=== PATIENT | male | born 1945 | race Caucasian/White ===

== ENCOUNTER 2017-06-07 12:29 | Inpatient (IN) | payer OTHER ==
[~2017-06-07] VITALS: Ht 170.2 cm; Wt 80.0 kg
[2017-06-07 13:24] LABS: CALCIUM 8.9 mg/dL (8.5-10.1); CARBON DIOXIDE 29.3 mmol/L (21-32); CHLORIDE SERUM 107 mmol/L (98-107); CREATININE SERUM 1.1 mg/dL (0.7-1.3); GFR1 > 60 mL/min; GLUCOSE SERUM 113 mg/dL (74-106); POTASSIUM SERUM 3.8 mmol/L (3.5-5.1); SODIUM SERUM 145 mmol/L (136-145)
[2017-06-07 13:28] LABS: ALBUMIN 3.7 g/dL (3.4-5.0); ALKALINE PHOSPHATASE 94 U/L (46-116); ALT/SGPT 29 U/L (16-63); AST/SGOT 29 U/L (15-37)
[2017-06-07 13:51] LABS: BASOPHIL % 0.4 % (0-2); PLATELET COUNT 125 x10^3mcL (130-400); RED CELL DISTRIBUTION WIDTH 13.9 % (11.5-14.5)
[2017-06-07] MEDS ORDERED: DILTIAZEM HCL120 M2 PO (14:51)
[2017-06-07] MEDS ORDERED: CARVEDILOL6.25 M1 PO (14:52)
[2017-06-07] MEDS ORDERED: KLOR-CON M2020 MEQ PO (14:53)
[2017-06-07] MEDS ORDERED: MAGNESIUM OXID400 MG PO (14:53)
[2017-06-07] MEDS ORDERED: XARELTO10 M1 PO (14:56)
[2017-06-07] MEDS ORDERED: FLONS (14:56)
[2017-06-07] MEDS ORDERED: LIPI20 PO (14:57)
[2017-06-07] MEDS ORDERED: GEMFIBROZIL600 MG PO (14:57)
[2017-06-07] MEDS ORDERED: PRAZOSIN HYDROCH1 MG PO (14:58)
[2017-06-07 15:35] LABS: MAGNESIUM 2.2 mg/dL (1.8-2.4); PHOSPHOROUS 3.3 mg/dL (2.5-4.9)
[2017-06-07 15:48] VITALS: BP 179/126
[2017-06-07 15:51] LABS: T3 TOTAL 1.04 ng/mL
[2017-06-07 15:53] VITALS: Ht 170.2 cm; Wt 80.0 kg
[2017-06-07 16:00] LABS: FREE T4 0.75 ng/dL (0.76-1.46); FREE THYROXINE INDEX 1.7 ug/dL (1.4-4.5); T4(THYROXINE) 4.8 ug/dL (4.7-13.3)
[2017-06-07 16:51] VITALS: BP 186/89
[2017-06-07 17:43] LABS: UA SPECIFIC GRAVITY 1.015 (1.005-1.035); microscopic required? YES; urine erythrocyte NEGATIVE (NEGATIVE)
[2017-06-07 17:52] VITALS: BP 145/83
[2017-06-07 21:20] VITALS: BP 146/92
[2017-06-08 06:13] VITALS: BP 155/75
[2017-06-08 10:17] VITALS: BP 129/87
[2017-06-08 13:46] VITALS: BP 162/82
[2017-06-08 22:46] VITALS: BP 176/91
[2017-06-08 23:05] VITALS: BP 125/82
[2017-06-09 06:14] VITALS: BP 144/78
[2017-06-09 07:05] VITALS: BP 145/78
[2017-06-09] MEDS ORDERED: XARELTO20 M1 PO (07:29)
[2017-06-09] MEDS ORDERED: CARCD120 PO (07:33)
[2017-06-09] MEDS ORDERED: COREG12.5 MG PO (10:19)
[2017-06-09 10:21] VITALS: BP 174/101
[2017-06-09 10:54] LABS: BASOPHIL % 0.4 % (0-2); RED CELL DISTRIBUTION WIDTH 14.1 % (11.5-14.5)
[2017-06-09 11:10] LABS: CALCIUM 9.1 mg/dL (8.5-10.1); CARBON DIOXIDE 27.4 mmol/L (21-32); CHLORIDE SERUM 106 mmol/L (98-107); CREATININE SERUM 1.1 mg/dL (0.7-1.3); GFR1 > 60 mL/min; GLUCOSE SERUM 179 mg/dL (74-106); MAGNESIUM 2.2 mg/dL (1.8-2.4); POTASSIUM SERUM 3.2 mmol/L (3.5-5.1); SODIUM SERUM 144 mmol/L (136-145)
[2017-06-09 11:13] LABS: PLATELET COUNT 110 x10^3mcL (130-400)
[2017-06-09 12:58] VITALS: BP 154/85
[2017-06-09 16:18] VITALS: BP 154/85
[2017-06-09 16:44] VITALS: BP 146/80
== END 2017-06-09 18:22 | disposition home or self-care (01) | DRG 308 ==
LOC: ED 12:29 → DU 14:28
PROVIDERS: Emergency Medicine; Student in an Organized Health Care Education/Training Program
DX: I48.2 Chronic atrial fibrillation (principal); N17.0 Acute kidney failure with tubular necrosis; I16.0 Hypertensive urgency; I11.0 Hypertensive heart disease with heart failure; I43 Cardiomyopathy in diseases classified elsewhere; I08.3 Combined rheumatic disorders of mitral, aortic and tricuspid valves; J32.9 Chronic sinusitis, unspecified; E03.9 Hypothyroidism, unspecified; E78.5 Hyperlipidemia, unspecified; Z79.01 Long term (current) use of anticoagulants; Z68.27 Body mass index [BMI] 27.0-27.9, adult
CPT/HCPCS: 83880; 84439; 94150; J0360; J1940; J3475; J3490; J7030; Q0092

== ENCOUNTER 2017-11-14 08:15 | Inpatient (IN) | payer OTHER ==
[~2017-11-14] VITALS: Ht 170.2 cm; Wt 80.3 kg
[~2017-11-14 08:15] MED LIST: CARCD120 PO; CARVEDILOL6.25 M1 PO; COREG12.5 MG PO; DILTIAZEM HCL120 M2 PO; FLONS; GEMFIBROZIL600 MG PO; KLOR-CON M2020 MEQ PO; LIPI20 PO; MAGNESIUM OXID400 MG PO; PRAZOSIN HYDROCH1 MG PO; XARELTO10 M1 PO; XARELTO20 M1 PO
[2017-11-14 08:19] VITALS: Ht 170.2 cm; Wt 80.3 kg
[2017-11-14 08:52] LABS: BASOPHIL % 0.6 % (0-2); PLATELET COUNT 142 x10^3mcL (130-400); RED CELL DISTRIBUTION WIDTH 14.3 % (11.5-14.5)
[2017-11-14 09:17] LABS: CALCIUM 8.7 mg/dL (8.5-10.1); CARBON DIOXIDE 27.8 mmol/L (21-32); CHLORIDE SERUM 107 mmol/L (98-107); CREATININE SERUM 1.4 mg/dL (0.7-1.3); GLUCOSE SERUM 101 mg/dL (74-106); POTASSIUM SERUM 3.5 mmol/L (3.5-5.1); SODIUM SERUM 143 mmol/L (136-145)
[2017-11-14 09:22] LABS: ALBUMIN 3.6 g/dL (3.4-5.0); ALKALINE PHOSPHATASE 91 U/L (46-116); ALT/SGPT 30 U/L (16-63); AST/SGOT 34 U/L (15-37); BILIRUBIN TOTAL 1.3 mg/dL (0.20-1.00); TOTAL PROTEIN, SERUM 7.7 g/dL (6.4-8.2)
[2017-11-14] MEDS ORDERED: LOSARTAN POTASS25 M1 PO (10:28)
[2017-11-14] MEDS ORDERED: LASIX20 MG PO (10:29)
[2017-11-14] MEDS ORDERED: LIPI20 PO (10:29)
[2017-11-14] MEDS ORDERED: FERROUS SULFAT325 M2 PO (10:30)
[2017-11-14 11:33] VITALS: BP 144/80
[2017-11-14 11:50] LABS: MAGNESIUM 2.1 mg/dL (1.8-2.4); PHOSPHOROUS 3.8 mg/dL (2.5-4.9)
[2017-11-14 11:55] LABS: CHOLESTEROL/HDL RATIO 4.6
[2017-11-14 11:59] LABS: FREE T4 0.77 ng/dL (0.76-1.46)
[2017-11-14 12:07] LABS: T3 TOTAL 1.05 ng/mL
[2017-11-14 12:12] LABS: FREE THYROXINE INDEX 1.1 ug/dL (1.4-4.5); T4(THYROXINE) 3.5 ug/dL (4.7-13.3)
[2017-11-14] MEDS ORDERED: COREG12.5 MG PO (13:04)
[2017-11-14 13:45] VITALS: BP 141/69
[2017-11-14 15:59] LABS: UA SPECIFIC GRAVITY 1.025 (1.005-1.035); microscopic required? YES; urine erythrocyte NEGATIVE (NEGATIVE)
[2017-11-14 16:11] LABS: AMPHETAMINE QUAL UR NONE DETECTED (See below)
[2017-11-14 20:38] VITALS: BP 155/71
[2017-11-15 05:51] VITALS: BP 145/79
[2017-11-15 06:39] LABS: CALCIUM 9.2 mg/dL (8.5-10.1); CARBON DIOXIDE 25.8 mmol/L (21-32); CHLORIDE SERUM 107 mmol/L (98-107); CREATININE SERUM 1.3 mg/dL (0.7-1.3); GLUCOSE SERUM 119 mg/dL (74-106); PHOSPHOROUS 3.4 mg/dL (2.5-4.9); POTASSIUM SERUM 3.2 mmol/L (3.5-5.1); SODIUM SERUM 147 mmol/L (136-145)
[2017-11-15 06:59] LABS: BASOPHIL % 0.3 % (0-2)
[2017-11-15 07:08] LABS: PLATELET COUNT 124 x10^3mcL (130-400); RED CELL DISTRIBUTION WIDTH 14.6 % (11.5-14.5)
[2017-11-15] MEDS ORDERED: METP PO (13:03)
[2017-11-15] MEDS ORDERED: BEN10I PO (13:04)
[2017-11-15] MEDS ORDERED: SIMETHICONE80 MG PO (13:06)
[2017-11-15 13:55] VITALS: BP 166/87
[2017-11-15 15:35] VITALS: BP 151/78
[2017-11-15 15:36] VITALS: BP 151/78
== END 2017-11-15 16:19 | disposition home or self-care (01) | DRG 377 ==
LOC: ED 08:15 → DU 10:17
PROVIDERS: Family Medicine; Internal Medicine; Specialist
PROC: 0DBP8ZZ Excision of Rectum, Via Natural or Artificial Opening Endoscopic (ICD-10-PCS; 2017-11-15)
PROC: 0DBK8ZZ Excision of Ascending Colon, Via Natural or Artificial Opening Endoscopic (ICD-10-PCS; principal; 2017-11-15 08:00)
PROC: 0DBN8ZZ Excision of Sigmoid Colon, Via Natural or Artificial Opening Endoscopic (ICD-10-PCS; 2017-11-15 08:00)
DX: K57.31 Diverticulosis of large intestine without perforation or abscess with bleeding (principal); N17.0 Acute kidney failure with tubular necrosis; K51.411 Inflammatory polyps of colon with rectal bleeding; I48.2 Chronic atrial fibrillation; I50.9 Heart failure, unspecified; I10 Essential (primary) hypertension; E78.5 Hyperlipidemia, unspecified; F17.210 Nicotine dependence, cigarettes, uncomplicated; Z79.01 Long term (current) use of anticoagulants
CPT/HCPCS: 45378; 83880; 84439; 87046; 87046-59; C9113; J1200; J1610; J2250; J2310; J3010; J3490; J7030; Q0092

== ENCOUNTER 2018-04-21 09:01 | Inpatient (IN) | payer OTHER ==
[~2018-04-21] VITALS: Ht 170.2 cm; Wt 79.0 kg
[~2018-04-21 09:01] MED LIST changes: +BEN10I PO; +FERROUS SULFAT325 M2 PO; +LASIX20 MG PO; +LOSARTAN POTASS25 M1 PO; +METP PO; +SIMETHICONE80 MG PO
[2018-04-21 09:09] VITALS: Ht 170.2 cm; Wt 79.0 kg
[2018-04-21 10:04] LABS: BASOPHIL % 0.3 % (0-2); PLATELET COUNT 135 x10^3mcL (130-400)
[2018-04-21 10:05] LABS: RED CELL DISTRIBUTION WIDTH 14.6 % (11.5-14.5)
[2018-04-21 10:11] LABS: CALCIUM 8.7 mg/dL (8.5-10.1); CARBON DIOXIDE 29.5 mmol/L (21-32); CHLORIDE SERUM 108 mmol/L (98-107); CREATININE SERUM 1.2 mg/dL (0.7-1.3); GLUCOSE SERUM 97 mg/dL (74-106); POTASSIUM SERUM 4.2 mmol/L (3.5-5.1); SODIUM SERUM 146 mmol/L (136-145)
[2018-04-21 10:15] LABS: ALBUMIN 3.7 g/dL (3.4-5.0); ALKALINE PHOSPHATASE 107 U/L (46-116); ALT/SGPT 50 U/L (16-63); AST/SGOT 48 U/L (15-37); BILIRUBIN TOTAL 1.11 mg/dL (0.20-1.00); CHOLESTEROL 164 mg/dL (<200); LIPASE 179 IU/L (73-393); TOTAL PROTEIN, SERUM 8.2 g/dL (6.4-8.2)
[2018-04-21 10:19] LABS: CHOLESTEROL/HDL RATIO 6.1; HDL CHOLESTEROL 27 mg/dL (40-60); TRIGLYCERIDES 307 mg/dL (<150)
[2018-04-21 10:23] LABS: FREE T4 0.7 ng/dL (0.76-1.46)
[2018-04-21 10:25] LABS: T3 TOTAL 1.06 ng/mL
[2018-04-21 10:27] LABS: FREE THYROXINE INDEX 1.1 ug/dL (1.4-4.5); T4(THYROXINE) 3.5 ug/dL (4.7-13.3)
[2018-04-21 11:17] LABS: UA SPECIFIC GRAVITY 1.015 (1.005-1.035); microscopic required? YES; urine erythrocyte NEGATIVE (NEGATIVE)
[2018-04-21 12:28] LABS: PHOSPHOROUS 3.8 mg/dL (2.5-4.9)
[2018-04-21 13:12] LABS: AMPHETAMINE QUAL UR NONE DETECTED (See below)
[2018-04-21 14:42] VITALS: BP 158/105
[2018-04-21 16:39] VITALS: BP 159/82
[2018-04-21 20:52] VITALS: BP 140/65
[2018-04-22 05:16] VITALS: BP 146/88
[2018-04-22 09:58] VITALS: BP 161/84
[2018-04-22 14:30] VITALS: BP 100/79
[2018-04-22 17:04] VITALS: BP 147/81
[2018-04-22 22:08] VITALS: BP 112/91
[2018-04-23 06:10] VITALS: BP 150/98
[2018-04-23 06:59] LABS: BASOPHIL % 0.3 % (0-2); RED CELL DISTRIBUTION WIDTH 13.8 % (11.5-14.5)
[2018-04-23 07:00] LABS: PLATELET COUNT 120 x10^3mcL (130-400)
[2018-04-23 08:22] LABS: CALCIUM 8.8 mg/dL (8.5-10.1); CARBON DIOXIDE 27.8 mmol/L (21-32); CHLORIDE SERUM 104 mmol/L (98-107); CREATININE SERUM 1.2 mg/dL (0.7-1.3); GLUCOSE SERUM 126 mg/dL (74-106); MAGNESIUM 2.2 mg/dL (1.8-2.4); PHOSPHOROUS 3.3 mg/dL (2.5-4.9); POTASSIUM SERUM 3.6 mmol/L (3.5-5.1); SODIUM SERUM 144 mmol/L (136-145)
[2018-04-23 09:40] VITALS: BP 138/64
[2018-04-23] MEDS ORDERED: XARELTO20 M1 PO (13:23)
[2018-04-23] MEDS ORDERED: METOPROLOL TART25 M1 PO (13:24)
[2018-04-23] MEDS ORDERED: CARCD120 PO (13:24)
[2018-04-23 13:59] VITALS: BP 138/64
== END 2018-04-23 14:58 | disposition home or self-care (01) | DRG 291 ==
LOC: ED 09:01 → DU 11:32
PROVIDERS: General Practice; Specialist
DX: I11.0 Hypertensive heart disease with heart failure (principal); N17.0 Acute kidney failure with tubular necrosis; J96.01 Acute respiratory failure with hypoxia; E87.0 Hyperosmolality and hypernatremia; J44.1 Chronic obstructive pulmonary disease with (acute) exacerbation; I50.23 Acute on chronic systolic (congestive) heart failure; I48.91 Unspecified atrial fibrillation; R73.03 Prediabetes; R74.0 Nonspecific elevation of levels of transaminase and lactic acid dehydrogenase [LDH]; R80.9 Proteinuria, unspecified; E78.1 Pure hyperglyceridemia; E03.9 Hypothyroidism, unspecified; F17.210 Nicotine dependence, cigarettes, uncomplicated; Z68.28 Body mass index [BMI] 28.0-28.9, adult
CPT/HCPCS: 36600; 83880; 84439; 94150; J1940; J3490; J7030; J7050; J7620; Q0092

== ENCOUNTER 2018-05-06 16:23 | Inpatient (IN) | payer OTHER ==
[~2018-05-06] VITALS: Ht 170.2 cm; Wt 79.8 kg
[~2018-05-06 16:23] MED LIST changes: +METOPROLOL TART25 M1 PO
[2018-05-06 16:45] VITALS: Ht 170.2 cm; Wt 79.8 kg
[2018-05-06 17:31] LABS: BASOPHIL % 0.4 % (0-2)
[2018-05-06 17:36] LABS: CALCIUM 8.8 mg/dL (8.5-10.1); CHLORIDE SERUM 106 mmol/L (98-107); CREATININE SERUM 1.3 mg/dL (0.7-1.3); GLUCOSE SERUM 109 mg/dL (74-106); POTASSIUM SERUM 3.8 mmol/L (3.5-5.1); SODIUM SERUM 142 mmol/L (136-145)
[2018-05-06 17:40] LABS: ALBUMIN 3.6 g/dL (3.4-5.0); ALKALINE PHOSPHATASE 110 U/L (46-116); ALT/SGPT 22 U/L (16-63); AMYLASE 42 U/L (25-115); AST/SGOT 27 U/L (15-37); BILIRUBIN TOTAL 0.89 mg/dL (0.20-1.00); LIPASE 203 IU/L (73-393); TOTAL PROTEIN, SERUM 7.8 g/dL (6.4-8.2)
[2018-05-06 18:00] LABS: CHOLESTEROL 126 mg/dL (<200); HDL CHOLESTEROL 29 mg/dL (40-60)
[2018-05-06 18:06] LABS: PLATELET COUNT 121 x10^3mcL (130-400); RED CELL DISTRIBUTION WIDTH 14.6 % (11.5-14.5)
[2018-05-06] MEDS ORDERED: CARVEDILOL12.5 M1 PO (18:32)
[2018-05-06 18:45] LABS: UA SPECIFIC GRAVITY 1.015 (1.005-1.035); microscopic required? YES; urine erythrocyte NEGATIVE (NEGATIVE)
[2018-05-06 19:01] LABS: AMPHETAMINE QUAL UR NONE DETECTED (See below)
[2018-05-06 20:14] VITALS: BP 181/84
[2018-05-06 20:26] LABS: MAGNESIUM 2.2 mg/dL (1.8-2.4)
[2018-05-06 20:32] LABS: CHOLESTEROL/HDL RATIO 4.4
[2018-05-06 20:45] VITALS: BP 181/84
[2018-05-06 23:00] VITALS: BP 154/80
[2018-05-07 05:06] VITALS: BP 128/83
[2018-05-07 07:00] LABS: CARBON DIOXIDE 30.1 mmol/L (21-32); CHLORIDE SERUM 105 mmol/L (98-107); CREATININE SERUM 1.2 mg/dL (0.7-1.3); GLUCOSE SERUM 105 mg/dL (74-106); POTASSIUM SERUM 3.6 mmol/L (3.5-5.1); SODIUM SERUM 145 mmol/L (136-145)
[2018-05-07 07:03] LABS: BASOPHIL % 0.4 % (0-2); RED CELL DISTRIBUTION WIDTH 13.5 % (11.5-14.5)
[2018-05-07 07:11] LABS: PLATELET COUNT 117 x10^3mcL (130-400)
[2018-05-07 13:49] VITALS: BP 140/68
[2018-05-07 17:37] VITALS: BP 155/84
[2018-05-07 20:35] VITALS: BP 140/60
[2018-05-08 05:38] VITALS: BP 143/77
[2018-05-08 07:01] LABS: BASOPHIL % 0.3 % (0-2); PLATELET COUNT 147 x10^3mcL (130-400)
[2018-05-08 07:09] LABS: CALCIUM 8.9 mg/dL (8.5-10.1); CARBON DIOXIDE 28.6 mmol/L (21-32); CHLORIDE SERUM 101 mmol/L (98-107); CREATININE SERUM 1.2 mg/dL (0.7-1.3); GLUCOSE SERUM 108 mg/dL (74-106); POTASSIUM SERUM 3.2 mmol/L (3.5-5.1); SODIUM SERUM 142 mmol/L (136-145)
[2018-05-08 07:55] LABS: RED CELL DISTRIBUTION WIDTH 14.9 % (11.5-14.5)
[2018-05-08 08:30] VITALS: BP 154/78
[2018-05-08 11:45] VITALS: BP 153/67
[2018-05-08 15:08] VITALS: BP 153/67
== END 2018-05-08 16:20 | disposition home or self-care (01) | DRG 291 ==
LOC: ED 16:23 → DU 18:31
PROVIDERS: Emergency Medicine; Internal Medicine
DX: I11.0 Hypertensive heart disease with heart failure (principal); J96.01 Acute respiratory failure with hypoxia; J44.1 Chronic obstructive pulmonary disease with (acute) exacerbation; E87.3 Alkalosis; I50.43 Acute on chronic combined systolic (congestive) and diastolic (congestive) heart failure; I42.9 Cardiomyopathy, unspecified; I48.2 Chronic atrial fibrillation; E78.5 Hyperlipidemia, unspecified; R74.0 Nonspecific elevation of levels of transaminase and lactic acid dehydrogenase [LDH]; F17.210 Nicotine dependence, cigarettes, uncomplicated; Z68.28 Body mass index [BMI] 28.0-28.9, adult; Z79.01 Long term (current) use of anticoagulants; Z86.718 Personal history of other venous thrombosis and embolism
CPT/HCPCS: 36600; 83880; J1940; J7620; Q0092

== ENCOUNTER 2018-05-27 09:49 | Inpatient (IN) | payer OTHER ==
[~2018-05-27] VITALS: Ht 162.6 cm; Wt 79.8 kg
[~2018-05-27 09:49] MED LIST changes: +CARVEDILOL12.5 M1 PO
[2018-05-27 09:58] VITALS: Ht 162.6 cm; Wt 79.8 kg
[2018-05-27 10:34] LABS: CARBON DIOXIDE 28.2 mmol/L (21-32); CHLORIDE SERUM 105 mmol/L (98-107); CREATININE SERUM 1.4 mg/dL (0.7-1.3); GLUCOSE SERUM 132 mg/dL (74-106); POTASSIUM SERUM 3.7 mmol/L (3.5-5.1); SODIUM SERUM 141 mmol/L (136-145)
[2018-05-27 10:38] LABS: ALBUMIN 3.7 g/dL (3.4-5.0); ALKALINE PHOSPHATASE 106 U/L (46-116); ALT/SGPT 27 U/L (16-63); AST/SGOT 39 U/L (15-37); BILIRUBIN TOTAL 1.62 mg/dL (0.20-1.00)
[2018-05-27 10:39] LABS: TOTAL PROTEIN, SERUM 8.4 g/dL (6.4-8.2)
[2018-05-27 11:20] LABS: PLATELET COUNT 135 x10^3mcL (130-400); RED CELL DISTRIBUTION WIDTH 14.1 % (11.5-14.5)
[2018-05-27] MEDS ORDERED: CARVEDILOL25 M1 PO (11:20)
[2018-05-27 11:21] LABS: BASOPHIL % 0.3 % (0-2); T3 TOTAL 0.87 ng/mL
[2018-05-27 11:24] LABS: FREE T4 0.81 ng/dL (0.76-1.46); T4(THYROXINE) 5.3 ug/dL (4.7-13.3)
[2018-05-27 17:22] VITALS: BP 140/77
[2018-05-27 19:25] VITALS: BP 123/73
[2018-05-28 05:19] VITALS: BP 140/62
[2018-05-28 08:22] VITALS: BP 131/68
[2018-05-28 11:56] VITALS: BP 145/80
[2018-05-28 16:25] VITALS: BP 122/78
[2018-05-28 19:10] VITALS: BP 150/79
[2018-05-28 20:34] VITALS: BP 136/86
[2018-05-29 06:04] VITALS: BP 142/90
[2018-05-29 06:38] VITALS: BP 143/77
[2018-05-29 07:39] LABS: CALCIUM 8.9 mg/dL (8.5-10.1); CARBON DIOXIDE 28.2 mmol/L (21-32); CHLORIDE SERUM 104 mmol/L (98-107); CREATININE SERUM 1.2 mg/dL (0.7-1.3); GLUCOSE SERUM 110 mg/dL (74-106); POTASSIUM SERUM 3.8 mmol/L (3.5-5.1); SODIUM SERUM 141 mmol/L (136-145)
[2018-05-29 07:47] LABS: BASOPHIL % 0.3 % (0-2); RED CELL DISTRIBUTION WIDTH 14.1 % (11.5-14.5)
[2018-05-29 08:30] LABS: PLATELET COUNT 119 x10^3mcL (130-400)
[2018-05-29 09:16] VITALS: BP 134/68
[2018-05-29 12:46] VITALS: BP 143/77
[2018-05-29 14:54] VITALS: BP 143/77
== END 2018-05-29 15:48 | disposition home or self-care (01) | DRG 308 ==
LOC: ED 09:49 → DU 14:07
PROVIDERS: Emergency Medicine; ADMIT Internal Medicine
DX: I48.91 Unspecified atrial fibrillation (principal); I50.43 Acute on chronic combined systolic (congestive) and diastolic (congestive) heart failure; I11.0 Hypertensive heart disease with heart failure; I42.9 Cardiomyopathy, unspecified; I25.10 Atherosclerotic heart disease of native coronary artery without angina pectoris; Z68.27 Body mass index [BMI] 27.0-27.9, adult; Z87.891 Personal history of nicotine dependence; Z79.01 Long term (current) use of anticoagulants
CPT/HCPCS: 83880; 84439; J1940; Q0092

== ENCOUNTER 2018-05-29 21:49 | Emergency (ER) | payer OTHER ==
[~2018-05-29] VITALS: Ht 167.6 cm; Wt 80.3 kg
[~2018-05-29 21:49] MED LIST changes: +CARVEDILOL25 M1 PO
[2018-05-29 22:25] VITALS: Ht 167.6 cm; Wt 80.3 kg
[2018-05-30 00:23] VITALS: BP 157/101
== END 2018-05-30 00:23 | disposition home or self-care (01) ==
LOC: ED 21:49
DX: J30.9 Allergic rhinitis, unspecified (principal); G47.00 Insomnia, unspecified; I11.0 Hypertensive heart disease with heart failure; I50.9 Heart failure, unspecified; I48.91 Unspecified atrial fibrillation; Z98.890 Other specified postprocedural states

== ENCOUNTER 2018-08-31 09:32 | Inpatient (IN) | payer OTHER ==
[~2018-08-31] VITALS: Ht 167.6 cm; Wt 79.0 kg
[2018-08-31 09:37] VITALS: Ht 167.6 cm; Wt 79.0 kg
[2018-08-31 12:51] LABS: BASOPHIL % 0.2 % (0-2); RED CELL DISTRIBUTION WIDTH 14.2 % (11.5-14.5)
[2018-08-31 12:56] LABS: CALCIUM 8.7 mg/dL (8.5-10.1); CARBON DIOXIDE 28.3 mmol/L (21-32); CHLORIDE SERUM 106 mmol/L (98-107); CREATININE SERUM 1.3 mg/dL (0.7-1.3); GLUCOSE SERUM 116 mg/dL (74-106); POTASSIUM SERUM 4.3 mmol/L (3.5-5.1); SODIUM SERUM 142 mmol/L (136-145)
[2018-08-31 12:58] LABS: PLATELET COUNT 101 x10^3mcL (130-400)
[2018-08-31 13:00] LABS: ALBUMIN 3.6 g/dL (3.4-5.0); ALKALINE PHOSPHATASE 96 U/L (46-116); ALT/SGPT 32 U/L (16-63); AST/SGOT 27 U/L (15-37); BILIRUBIN TOTAL 1.54 mg/dL (0.20-1.00); TOTAL PROTEIN, SERUM 7.7 g/dL (6.4-8.2)
[2018-08-31 14:06] VITALS: BP 157/93
[2018-08-31 15:16] VITALS: BP 115/79
[2018-08-31 17:41] VITALS: BP 123/75
[2018-08-31 20:20] VITALS: BP 143/81
[2018-09-01 05:56] VITALS: BP 148/79
[2018-09-01 07:09] LABS: CALCIUM 8.4 mg/dL (8.5-10.1); CARBON DIOXIDE 27.3 mmol/L (21-32); CHLORIDE SERUM 105 mmol/L (98-107); CREATININE SERUM 1.2 mg/dL (0.7-1.3); GLUCOSE SERUM 103 mg/dL (74-106); MAGNESIUM 2.1 mg/dL (1.8-2.4); POTASSIUM SERUM 3.8 mmol/L (3.5-5.1); SODIUM SERUM 141 mmol/L (136-145)
[2018-09-01 07:15] LABS: BASOPHIL % 0.4 % (0-2); RED CELL DISTRIBUTION WIDTH 14.4 % (11.5-14.5)
[2018-09-01 07:27] LABS: PLATELET COUNT 95 x10^3mcL (130-400)
[2018-09-01 09:36] VITALS: BP 112/70
[2018-09-01 12:51] VITALS: BP 114/53
[2018-09-01 17:25] VITALS: BP 128/75
[2018-09-01 21:20] VITALS: BP 128/63
[2018-09-02 05:30] VITALS: BP 144/67
[2018-09-02 06:16] LABS: BASOPHIL % 0.4 % (0-2); RED CELL DISTRIBUTION WIDTH 14.2 % (11.5-14.5)
[2018-09-02 06:27] LABS: PLATELET COUNT 101 x10^3mcL (130-400)
[2018-09-02 06:32] LABS: CALCIUM 8.5 mg/dL (8.5-10.1); CARBON DIOXIDE 26.9 mmol/L (21-32); CHLORIDE SERUM 103 mmol/L (98-107); CREATININE SERUM 1.2 mg/dL (0.7-1.3); GLUCOSE SERUM 133 mg/dL (74-106); POTASSIUM SERUM 3.3 mmol/L (3.5-5.1); SODIUM SERUM 139 mmol/L (136-145)
[2018-09-02 09:06] VITALS: BP 136/72
[2018-09-02 12:24] VITALS: BP 125/56
[2018-09-02 13:09] VITALS: BP 125/56
== END 2018-09-02 14:02 | disposition home or self-care (01) | DRG 291 ==
LOC: ED 09:32 → DU 12:52
PROVIDERS: Internal Medicine; ADMIT Internal Medicine
DX: I11.0 Hypertensive heart disease with heart failure (principal); J96.00 Acute respiratory failure, unspecified whether with hypoxia or hypercapnia; J44.1 Chronic obstructive pulmonary disease with (acute) exacerbation; I50.43 Acute on chronic combined systolic (congestive) and diastolic (congestive) heart failure; I27.20 Pulmonary hypertension, unspecified; I25.10 Atherosclerotic heart disease of native coronary artery without angina pectoris; I34.0 Nonrheumatic mitral (valve) insufficiency; I48.2 Chronic atrial fibrillation; E11.9 Type 2 diabetes mellitus without complications; Z68.28 Body mass index [BMI] 28.0-28.9, adult
CPT/HCPCS: 83880; C9113; J1940; Q0092